=== PATIENT | male | born 1995 | race African-American/Black ===

== ENCOUNTER 2016-12-11 09:35 | Emergency (ER) | payer OTHER ==
[~2016-12-11 09:35] MED LIST: ACETAMINOPHEN PO; AMLODIPINE BESYL5 MG PO; CLINDAMYCIN HC300 MG PO; CYANOCOBALAM1000 MCG PO; FOLIC ACID1 MG PO; HYDREA500 MG; HYDREA500 MG PO; HYDROCODON-ACE1 EAC7 PO; HYDROXYUREA500 M1 PO; LEVOFLOXACIN250 MG PO; LISINOPRIL; LISINOPRIL10 MG PO; LISINOPRIL5 MG PO; LOPRESSOR PO; LORTAB 10/500 T1 TAB PO; LORTAB 5/500 TA1 TA2 PO; LORTAB 7.5-3251 EACH PO; MULTI VITAMIN1 EACH PO; NORCO 10/3251 TAB DOB; NORCO 5/325 TAB1 TAB PO; NORVASC PO; NORVASC10 MG PO; OXYCODONE HCL5 MG PO; OXYCODONE IR PO; PEN-VEE K; PERCOCET 10/31 UDTA1 PO; PERCOCET 10/3251 TAB PO; ULTRAM PO; VITAMIN B-121000 MC1 SUBQ; ZESTRIL10 M1 PO; ZESTRIL10 MG PO; ZESTRIL5 MG PO; [UNRECOGNIZED DRUG - OTHER]
[2016-12-11 10:09] LABS: BASOPHIL# 0.1 X10e3 (0-0.3); BASOPHIL% 0.7 % (0-2.5); EOSINOPHIL# 0.4 X10e3 (0-0.7); EOSINOPHIL% 4.3 % (0.0-7.0); HEMATOCRIT 30.6 % (38.0-50.0); LYMPHOCYTE# 1.4 X10e3 (1.0-3.5); LYMPHOCYTE% 15.1 % (17.0-45.0); MEAN CELL VOLUME 85.5 FL (83-96); MEAN CORPUSCULAR HEMOGLOBIN 27.9 PG (28-34); MEAN CORPUSCULAR HGB CONC 32.7 g/dL (30-36); MEAN PLATELET VOLUME 9.2 FL (6.5-11.5); MONOCYTE% 10.7 % (3.0-12.0); NEUTROPHIL# 6.2 X10e3 (1.5-7.1); NEUTROPHIL% 69.2 % (40-75); PLATELET COUNT 404 X10e3 (140-420); RED BLOOD COUNT 3.58 X10e (3.90-5.60); RED CELL DISTRIBUTION WIDTH 19.1 % (11.0-15.5); RETICULOCYTE 2.3 % (0.5-2.8)
[2016-12-11 10:14] LABS: DIFF IND NO
== END 2016-12-11 10:40 | disposition home or self-care (01) ==
LOC: CED 09:35
PROVIDERS: Emergency Medicine
DX: D57.00 Hb-SS disease with crisis, unspecified (principal); I10 Essential (primary) hypertension; Z90.49 Acquired absence of other specified parts of digestive tract; Z88.1 Allergy status to other antibiotic agents
CPT/HCPCS: 36415; 85025; 85044; 96361; 96374; 96375; 99284; J1885; J3010

== ENCOUNTER 2016-12-15 14:22 | Inpatient (IN) | payer OTHER ==
--- NOTE | ~2016-12-15 | CR63 ---
[facility] A Service of [facility] RADIOLOGY TEXT RESULTS PATIENT: MICHAELA FAGAN LOCATION: [facility] 570-01 : [birth year] UNIT #: [id number] AGE: [address]: Nancy Bolden MD SEX: M ORDER DR: [id number] [facility] [address] [place], [place] [address] [id number] I MR#: [id number] #: [id number] NAME: MICHAELA FAGAN : 1995 SEX: M STUDY DATE/TIME: 12/15/2016 19:47 UNIT: [facility] ROOM: [facility] STUDY DESCRIPTION: CR Chest 2 View Attending Physician: Nancy Bolden M.D. Ordering Physician: Ed Doctor [id number] [facility] Primary Care Physician: Arslan Buitrago M.D. MEDICAL IMAGING REPORT This report is preliminary unless electronic signature is present EXAM PA and lateral chest HISTORY Back pain for 4 days. FINDINGS Two views of the chest demonstrate the cardiac size and pulmonary vascularity are normal. Low lung volumes. No infiltrates or effusions. IMPRESSION Negative. Dictated by... Papo Baltazar M.D. THIS IS AN ELECTRONICALLY VERIFIED REPORT Papo Baltazar M.D. at 12/16/2016 9:04 PM ELAINE/eydta TD: 12/16/2016 11:26 JOB #: [id number] MEDICAL IMAGING REPORT Page 1 of 1 COPY
--- NOTE | ~2016-12-15 | DS ---
Unit #: [id number] #: [id number] Patient: MICHAELA FAGAN [id number] [address] [address] [id number] I MR#: [id number] NAME: MICHAELA FAGAN ROOM: 237 Age: 21 Sex: M Admission Date: 12/15/2016 : 1995 Discharge Date: Attending Physician: Nancy Bolden M.D. Primary Care Physician: Arslan Buitrago M.D. DISCHARGE SUMMARY DISCHARGE DIAGNOSES 1. Acute sickle cell crisis. 2. Anemia, acute on chronic secondary to sickle cell disease. 3. Leukocytosis. 4. Hypokalemia. 5. Vitamin B12 deficiency. 6. Generalized body pain secondary to sickle cell disease. CONSULTATION None. PROCEDURES None. LAB DATA Urine culture negative. WBC 15.7, hemoglobin 8.2, platelets 258, retic count 8.3. Vitamin B12 is 203. Chest x-ray is negative. ALLERGIES Erythromycin and vancomycin. DISCHARGE MEDICATIONS 1. Hydroxyurea 1500 mg p.o. daily. 2. Norvasc 5 mg daily. 3. Lisinopril 5 mg daily. 4. Percocet 10 mg q.4 p.r.n. pain. 5. Folic acid 1 mg p.o. daily. 6. Vitamin B12 1,000 mcg p.o. daily. HOSPITALIZATION COURSE This is a 21-year-old admitted because of generalized body pain secondary to acute sickle cell crisis. The patient received IV fluids and IV Dilaudid and Percocet. Chest x-ray, urinalysis negative. The patient received blood transfusion. Currently, hemoglobin is stable. His pain got better. He wants to go home. He has elevated retic count chronically. He needs to follow with [facility] with Dr. Buitrago as an outpatient for sickle cell. B12 deficiency: I am going to give him vitamin B12 pills. Acute on chronic anemia secondary to sickle cell: The patient received IV blood transfusion. Unit #: [id number] #: [id number] Patient: MICHAELA FAGAN Hypertension, well controlled. The patient will be discharged home, follow with family physician in one week's time, follow with Dr. Buitrago at [facility] in one to two weeks' time. Dictated by... Ana Resendiz TD: 12/18/2016 11:29 JOB #: [id number] DISCHARGE SUMMARY Page 1 of 1 X Nancy Bolden MD X DISCHARGE SUMMARY
--- NOTE | ~2016-12-15 | HP ---
Unit #: [id number] #: [id number] Patient: MICHAELA FAGAN [id number] [address] [address] [id number] I MR#: [id number] NAME: MICHAELA FAGAN ROOM: 69165 Age: 21 Sex: M Admission Date: 12/15/2016 : 1995 Attending Physician: Jairon Sutton M.D. Primary Care Physician: Arslan Buitrago M.D. HISTORY AND PHYSICAL CHIEF COMPLAINT Bilateral lower extremity pain. HISTORY OF PRESENT ILLNESS The patient is a 20-year-old male with a history of sickle cell disease who presented to the ER complaining of sickle cell pain crisis. The patient stated that patient was seen in the emergency room three days ago for the similar pain and was discharged home on oral painkillers. The patient stated the pain has been gradually worsening to the point that he cannot take it anymore. The patient has had multiple admissions in the past for similar reasons. He denies any nausea, vomiting, fever, chills, shortness of breath, or cough. The patient was found to have a potassium of 2.9 and has been replaced by the ER. The patient is receiving Dilaudid 2 mg every three hours for the pain. The patient is being admitted for the above reasons. PAST MEDICAL HISTORY 1. Sickle cell disease. 2. Hypertension. 3. B12 deficiency. PAST SURGICAL HISTORY 1. Cholecystectomy. 2. Mouth abscess I and D. HOME MEDICATIONS 1. Lisinopril. 2. Norvasc. 3. Hydroxyurea. 4. Percocet. ALLERGIES VANCOMYCIN AND INTOLERANT TO ERYTHROMYCIN. FAMILY HISTORY Positive for sickle cell trait. SOCIAL HISTORY The patient lives with his mother and siblings. He is a lifelong nonsmoker and does not drink alcohol. REVIEW OF SYSTEMS A 14-point review of systems was performed and only pertinent positive findings are described above. The remaining are negative. Unit #: [id number] #: [id number] Patient: MICHAELA FAGAN PHYSICAL EXAMINATION GENERAL: Patient is lying in bed not in acute distress. VITAL SIGNS: Temperature 98.4, pulse 101, respirations 16, blood pressure 126/78, and saturating 100% on room air. HEENT: Head atraumatic, normocephalic. Pupils equal, round, and reactive to light and accommodation. Extraocular movements are intact. Dry mucous membranes. NECK: Supple. No JVD. LUNGS: Clear to auscultation bilaterally. No rhonchi, no wheezing. HEART: Regular rate and rhythm. ABDOMEN: Soft. Positive bowel sounds. EXTREMITIES: No cyanosis, no clubbing. NEUROLOGIC: Alert, awake, and oriented. No gross focal motor deficit. DIAGNOSTIC STUDIES LABORATORY: Glucose of 63, BUN 10, creatinine 0.6, sodium 140, potassium 2.9, chloride 103, bicarb 28, calcium 9.2, total protein 7.9, albumin 4.5, total bilirubin 1.5, direct bilirubin 0.3, AST 25, ALT 14, and alkaline phosphatase 75. WBC 13.9, hemoglobin 10.2, hematocrit 30.2, platelets 209,000, and reticulocytes 4.6. ASSESSMENT 1. Sickle cell pain crisis. 2. Hypokalemia. 3. Leukocytosis. PLAN Admit the patient to inpatient with telemetry. Continue with IV fluids of normal saline at 125 mL/hour. Continue pain control with Dilaudid 2 mg q.3 hours. Rule out infection. Check a chest x-ray and urinalysis with cultures. Repeat the labs again in the morning. Further recommendations will follow as more lab results are available. Dictated by Ana Bernardo TD: 12/15/2016 20:11 JOB #: [id number] HISTORY AND PHYSICAL Page 1 of 1 X X HISTORY AND PHYSICAL
[2016-12-15 15:20] LABS: BASOPHIL# 0.1 X10e3 (0-0.3); BASOPHIL% 0.4 % (0-2.5); EOSINOPHIL# 0.2 X10e3 (0-0.7); EOSINOPHIL% 1.2 % (0.0-7.0); HEMATOCRIT 30.2 % (38.0-50.0); HEMOGLOBIN 10.2 gm/dL (13.0-16.0); LYMPHOCYTE# 4.7 X10e3 (1.0-3.5); LYMPHOCYTE% 33.5 % (17.0-45.0); MEAN CELL VOLUME 84.8 FL (83-96); MEAN CORPUSCULAR HEMOGLOBIN 28.7 PG (28-34); MEAN CORPUSCULAR HGB CONC 33.8 g/dL (30-36); MEAN PLATELET VOLUME 9.7 FL (6.5-11.5); MONOCYTE# 1.9 X10e3 (0-1.0); MONOCYTE% 13.3 % (3.0-12.0); NEUTROPHIL# 7.2 X10e3 (1.5-7.1); NEUTROPHIL% 51.6 % (40-75); PLATELET COUNT 209 X10e3 (140-420); RED BLOOD COUNT 3.56 X10e (3.90-5.60); RED CELL DISTRIBUTION WIDTH 16.6 % (11.0-15.5); RETICULOCYTE 4.6 % (0.5-2.8); WHITE BLOOD COUNT 13.9 X10e3 (4.0-10.5)
[2016-12-15 15:25] LABS: DIFF IND NO
[2016-12-15 15:39] LABS: ALBUMIN SERUM 4.5 g/dL (3.5-5.0); ALKALINE PHOSPHATASE 75 U/L (32-92); ALT (SGPT) 14 U/L (10-40); AST (SGOT) 25 U/L (10-42); BILIRUBIN, DIRECT 0.3 mg/dL (0.0-0.2); BILIRUBIN,INDIRECT 1.2 mg/dL (0.0-0.9); BILIRUBIN,TOTAL 1.5 mg/dL (0.2-2.0); BLOOD UREA NITROGEN 10 mg/dL (9-23); BUN/CREATININE RATIO 16.66; CALCIUM SERUM 9.2 mg/dL (8.4-10.2); CARBON DIOXIDE 28 mmol/L (22-31); CHLORIDE 103 mmol/L (100-111); CREATININE SERUM 0.6 mg/dL (0.6-1.4); GLOM FILT RATE Estimated ABOVE60 mL/min (>60); GLUCOSE FASTING 63 mg/dL (70-110); PROTEIN TOTAL SERUM 7.9 g/dL (6.0-8.3); SODIUM 140 mmol/L (135-145)
[2016-12-15 15:41] LABS: POTASSIUM 2.9 mmol/L (3.5-5.1)
[2016-12-15] MEDS ORDERED: PERCOCET 10/31 UDTA1 PO (16:32)
[2016-12-16 05:36] LABS: BASOPHIL# 0.1 X10e3 (0-0.3); BASOPHIL% 0.5 % (0-2.5); EOSINOPHIL# 0.8 X10e3 (0-0.7); HEMATOCRIT 24.2 % (38.0-50.0); LYMPHOCYTE# 6.9 X10e3 (1.0-3.5); LYMPHOCYTE% 41.8 % (17.0-45.0); MEAN CELL VOLUME 85.4 FL (83-96); MEAN CORPUSCULAR HEMOGLOBIN 28.7 PG (28-34); MEAN CORPUSCULAR HGB CONC 33.6 g/dL (30-36); MEAN PLATELET VOLUME 8.6 FL (6.5-11.5); MONOCYTE% 12.2 % (3.0-12.0); NEUTROPHIL# 6.7 X10e3 (1.5-7.1); NEUTROPHIL% 40.5 % (40-75); PLATELET COUNT 174 X10e3 (140-420); RED BLOOD COUNT 2.83 X10e (3.90-5.60); RED CELL DISTRIBUTION WIDTH 16.4 % (11.0-15.5); WHITE BLOOD COUNT 16.5 X10e3 (4.0-10.5)
[2016-12-16 05:38] LABS: DIFF IND YES; HEMOGLOBIN 8.1 gm/dL (13.0-16.0)
[2016-12-16 06:07] LABS: ANISOCYTOSIS SL; PLATELET ESTIMATE NORMAL (NORMAL)
[2016-12-16 06:11] LABS: BLOOD UREA NITROGEN 10 mg/dL (9-23); CALCIUM SERUM 8.5 mg/dL (8.4-10.2); CARBON DIOXIDE 26 mmol/L (22-31); CHLORIDE 110 mmol/L (100-111); CREATININE SERUM 0.5 mg/dL (0.6-1.4); GLOM FILT RATE Estimated ABOVE60 mL/min (>60); GLUCOSE FASTING 89 mg/dL (70-110); POTASSIUM 3.5 mmol/L (3.5-5.1); SODIUM 140 mmol/L (135-145)
[2016-12-16 08:49] LABS: URINE APPEARANCE CLEAR; URINE BILIRUBIN NEG (NEG); URINE BLOOD NEG (NEG); URINE COLOR YELLOW; URINE GLUCOSE NEG (NEG); URINE KETONE NEG (NEG); URINE LEUKOCYTE ESTERASE 2+ (NEG); URINE NITRATE NEG (NEG); URINE PROTEIN NEG (NEG); URINE SPECIFIC GRAVITY 1.014 (1.003-1.035); URINE UROBILINOGEN 0.2 MG/DL (NEG)
[2016-12-16 08:52] LABS: CULTURE INDICATED? YES; URBCS1 AUWI 0-2 /[HPF] (0-2); URINE BACTERIA AUWI NEG (NEGATIVE); URINE SQUAMOUS EPITHELIAL CELL FEW /[HPF]
[2016-12-17 07:04] LABS: ALBUMIN SERUM 3.4 g/dL (3.5-5.0); ALKALINE PHOSPHATASE 70 U/L (32-92); ALT (SGPT) 9 U/L (10-40); AST (SGOT) 14 U/L (10-42); BILIRUBIN,TOTAL 1.2 mg/dL (0.2-2.0); BLOOD UREA NITROGEN 8 mg/dL (9-23); CALCIUM SERUM 8.7 mg/dL (8.4-10.2); CARBON DIOXIDE 25 mmol/L (22-31); CHLORIDE 112 mmol/L (100-111); CREATININE SERUM 0.5 mg/dL (0.6-1.4); GLOM FILT RATE Estimated ABOVE60 mL/min (>60); GLUCOSE FASTING 92 mg/dL (70-110); POTASSIUM 3.8 mmol/L (3.5-5.1); PROTEIN TOTAL SERUM 5.8 g/dL (6.0-8.3); SODIUM 141 mmol/L (135-145)
[2016-12-17 07:09] LABS: HEMATOCRIT 22.8 % (38.0-50.0); HEMOGLOBIN 7.5 gm/dL (13.0-16.0); MEAN CELL VOLUME 87.6 FL (83-96); MEAN CORPUSCULAR HEMOGLOBIN 28.9 PG (28-34); MEAN PLATELET VOLUME 9.3 FL (6.5-11.5); RED BLOOD COUNT 2.6 X10e (3.90-5.60); RED CELL DISTRIBUTION WIDTH 16.4 % (11.0-15.5); RETICULOCYTE 6.4 % (0.5-2.8); WHITE BLOOD COUNT 15.2 X10e3 (4.0-10.5)
[2016-12-18 07:05] LABS: HEMATOCRIT 24.7 % (38.0-50.0); HEMOGLOBIN 8.2 gm/dL (13.0-16.0); MEAN CELL VOLUME 88.9 FL (83-96); MEAN CORPUSCULAR HEMOGLOBIN 29.3 PG (28-34); MEAN PLATELET VOLUME 9.3 FL (6.5-11.5); RED BLOOD COUNT 2.78 X10e (3.90-5.60); RETICULOCYTE 8.3 % (0.5-2.8); WHITE BLOOD COUNT 15.7 X10e3 (4.0-10.5)
[2016-12-18] MEDS ORDERED: FOLIC ACID PO (11:01)
[2016-12-18] MEDS ORDERED: B-121000 MC1 PO (11:02)
== END 2016-12-18 12:18 | disposition home or self-care (01) | DRG 812 ==
LOC: CED 14:22 → CEDOF 18:41 → C5C 20:46 → C2A 12-17 00:10
PROVIDERS: Emergency Medicine; Internal Medicine
DX: D57.00 Hb-SS disease with crisis, unspecified (principal); I10 Essential (primary) hypertension; E87.6 Hypokalemia; E53.8 Deficiency of other specified B group vitamins; Z90.49 Acquired absence of other specified parts of digestive tract; I25.10 Atherosclerotic heart disease of native coronary artery without angina pectoris; I25.2 Old myocardial infarction; Z83.2 Family history of diseases of the blood and blood-forming organs and certain disorders involving the immune mechanism
CPT/HCPCS: 36415; 71020; 80048; 80053; 80076; 81003; 82607; 82947; 85025; 85027; 85044; 87086; 96361; 96374; 96375; 96376; 99285; J1170; J1650; J2060; J2405

== ENCOUNTER 2017-04-11 19:30 | Inpatient (IN) | payer OTHER ==
[~2017-04-11] VITALS: Ht 162.6 cm; Wt 66.4 kg
--- NOTE | ~2017-04-11 | HM ---
Unit #: [id number] #: [id number] Patient: MICHAELA FAGAN [id number] [place], [place] [address] [id number] I MR#: [id number] NAME: MICHAELA FAGAN : 1995 SEX: M STUDY DATE/TIME: 04/12/2017 UNIT: [facility] ROOM: 563 STUDY DESCRIPTION: Attending Physician: Shar Stout M.D. Primary Care Physician: Arslan Buitrago M.D. CARDIOLOGY REPORT EXAM 24-hour Holter monitor. DATE APPLIED 04/12/2017 DATE SCANNED 04/14/2017 READ BY [facility]. ORDERED BY Leslie Lu M.D. REASON FOR STUDY Bradycardia. FINDINGS Underlying rhythm is normal sinus rhythm with an average heart rate of 65 beats per minute, minimum heart rate of 41 beats per minute, and a maximum heart rate of 113 beats per minute. The minimum heart rate of 41 beats per minute is noted at 3:19 p.m. The maximum heart rate of 113 beats per minute is noted at 3:40 a.m. The patient had a 0.7 second pause noted at 1:54 p.m. Patient had 181 single multifocal premature ventricular complex and 17 ventricular couplets noted. The patient had 121 single premature atrial complex and 31 atrial couplets noted. Patient did not record any symptoms. CONCLUSION 1. Underlying rhythm is normal sinus rhythm with an average heart rate of 65 beats per minute, minimum heart rate of 41 beats per minute and a maximum heart rate of 113 beats per minute. 2. No sustained atrial or ventricular arrhythmias noted. 3. No significant pauses noted. 4. Occasional single multifocal premature ventricular complex, ventricular couplet, premature atrial complex and atrial couplet noted. 5. The patient did not record any symptoms. Unit #: [id number] #: [id number] Patient: MICHAELA FAGAN Dictated by... Ana Mckoy TD: 04/15/2017 11:22 JOB #: [id number] CARDIOLOGY REPORT Page 1 of 1 X Leslie Lu MD <ELECTRONICALLY SIGNED> 04/17/17 1429 HOLTER MONITOR REPORT
--- NOTE | ~2017-04-11 | EKG ---
PATIENT: MICHAELA FAGAN UNIT #: [id number] Ventricular Rate: 51 BPM Atrial Rate: 51 BPM P-R Interval: 134 ms QRS Duration: 96 ms Q-T Interval: 430 ms QTC Calculation(Bezet): 396 ms P Spicer: -5 degrees Calculated R Spicer: 57 degrees Calculated T Spicer: 41 degrees Diagnosis Line: Sinus bradycardia Diagnosis Line: Otherwise normal ECG Diagnosis Line: No previous ECGs available Diagnosis Line: Confirmed by SOFIYA PACK MD ([id number]) on Diagnosis Line: 04/13/2017 3:45:17 PM INTERPRETING MD: MIAH
--- NOTE | ~2017-04-11 | CO ---
Unit #: [id number] #: [id number] Patient: MICHAELA FAGAN [id number] [address] [address] [id number] I MR#: [id number] NAME: MICHAELA FAGAN ROOM: 563 Age: 22 Sex: M Admission Date: 04/12/2017 : 1995 Attending Physician: Shar Stout M.D. Primary Care Physician: Arslan Buitrago M.D. CONSULTATION REPORT CHIEF COMPLAINT Sickle cell disease, in crisis; bilateral knee pain, on hydroxyurea; patient at [facility]. HISTORY OF PRESENT ILLNESS This is a 22-year-old male who has sickle cell disease. He is taking hydroxyurea 1,500 mg daily. He has been followed at [facility]. Patient came to the hospital with severe bilateral knee pain. He is receiving IV fluids and pain medication. Today's CBC showed WBC of 20.3, hemoglobin 7.1, MCV 86 and platelets 338. His creatinine is 0.6, total bili 2.3, alkaline phosphatase 97. He does not have any chest x-ray. REVIEW OF SYSTEMS CONSTITUTIONAL: No fever, no chills, no sweats, no weight loss. EYES: No visual symptoms. EARS, NOSE AND THROAT: There is no runny nose or sore throat or difficulty hearing. CARDIOVASCULAR: No chest pain. No shortness of breath. No palpitations. No orthopnea. No PND. RESPIRATORY: No cough. No wheezing. No hemoptysis. GASTROINTESTINAL: No nausea, vomiting, diarrhea, constipation, hematochezia or melena. GENITOURINARY: No urinary frequency, hesitancy or urgency. No blood in the urine. MUSCULOSKELETAL: As mentioned above. NEUROLOGIC: No headache. No numbness or tingling. No weakness. No seizure. PSYCHIATRIC: No anxiety, depression or mood disturbance. ENDOCRINE: No excessive urination or thirst. DERMATOLOGIC: No rash or change in the skin. ALLERGIC/IMMUNOLOGIC: No symptoms. HEMATOLOGIC/LYMPHATIC: Denies any symptoms. PAST MEDICAL HISTORY 1. Sickle cell disease, multiple crises. 2. Hypertension. ALLERGIES None. SOCIAL HISTORY Unit #: [id number] #: [id number] Patient: MICHAELA FAGAN No smoking. No alcohol. No drugs. FAMILY HISTORY No one in the family has sickle cell disease. (1) trait. CURRENT MEDICATIONS Include vitamin B12, folic acid, hydroxyurea, Norvasc, Zestril, Percocet, morphine, ibuprofen. PHYSICAL EXAMINATION VITALS: Afebrile. Pulse 59, respirations 18, O2 sats on 2 liters 100%, blood pressure 129/68. HEENT: Moist mucosa. Pupils equally reactive to light. Extraocular muscles intact. Sclerae anicteric. No obvious bleeding from nasal mucosa or oral mucosa. Scalp normal. Hearing normal. NECK: No JVD. No lymphadenopathy. LYMPHATIC/HEMATOLOGIC: There is no palpable adenopathy in the neck, axilla or inguinal area. CARDIOVASCULAR: S1, S2. Regular rate and rhythm. No S3 or S4. RESPIRATORY: Chest symmetrical, normal. Clear to auscultation bilaterally. No wheezes, no rales, no rhonchi. No dullness to percussion. ABDOMEN/GASTROINTESTINAL: Abdomen is soft, nontender, nondistended. No hepatosplenomegaly. EXTREMITIES: There is no clubbing, no cyanosis, no edema. No varicose veins. NEUROLOGICAL: Patient is alert, awake and oriented x3. Cranial nerves II-XII are intact. Sensory grossly intact. Motor is 4/5 in all four extremities. Gait is normal. Station is normal. Language is normal. Memory is normal. DTRs +2 in all four extremities. MUSCULOSKELETAL: No joint swelling. No bony tenderness. No muscle tenderness. SKIN: No petechiae, no rash, no ecchymosis. PSYCHIATRIC: No anxiety. No delusions or hallucinations. There is no agitation. Eye contact is normal. Affect is appropriate. There is no flight of ideas. DIAGNOSTIC STUDIES LAB: As mentioned above. ASSESSMENT AND PLAN This is a 22-year-old male who has the following active issues: 1. Sickle cell. He is in crisis. He has bilateral knee pain. His hemoglobin is 7. Will transfuse him 1 unit of PRBCs. Will continue folic acid, B12 and hydroxyurea. Please note that he is taking hydroxyurea 1,500 mg daily. He will follow at [facility]. 2. Pain. Will continue current pain medication. 3. Dehydration. Will continue IV fluids. Dictated by... Ana Downey TD: 04/12/2017 10:12 JOB #: [id number] Unit #: [id number] #: [id number] Patient: RYLAN,MICHAELAMark Adame CONSULTATION REPORT Page 1 of 1 X Bhavin Pereyra MD CONSULTATION REPORT
--- NOTE | ~2017-04-11 | CR72 ---
[facility] A Service of [facility] RADIOLOGY TEXT RESULTS PATIENT: MICHAELA FAGAN LOCATION: [facility] 563-01 : [birth year] UNIT #: [id number] AGE: [address]: Shar Stout MD SEX: M ORDER DR: [id number] [facility] [address] [facility]. [place], [place] [address] [id number] I MR#: [id number] #: [id number] NAME: MICHAELA FAGAN : 1995 SEX: M STUDY DATE/TIME: 04/12/2017 11:15 UNIT: [facility] ROOM: [facility] STUDY DESCRIPTION: CR Chest Single View Portable Attending Physician: Shar Stout M.D. Ordering Physician: Shar Stout M.D. Primary Care Physician: Arslan Buitrago M.D. MEDICAL IMAGING REPORT This report is preliminary unless electronic signature is present EXAM Portable chest 04/12/2017 HISTORY 22-year-old male with sickle cell crisis, total body pain past 2 days. COMPARISON Chest 12/15/2016. FINDINGS AP portable chest demonstrates very low inspiration. Cardiac enlargement is again noted. Lungs are clear. Some vascular prominence appears to reflect the low inspiratory effort. I see no infiltrates and no effusions. Biconcave wedging and loss of vertebral heights scattered throughout thoracic and visualized lumbar vertebrae. Overall increase in bone mineral density noted. IMPRESSION Cardiac enlargement and generalized increase in bone mineral density with multiple biconcave vertebral fractures. No acute lung finding at this time. Low lung volumes. Dictated by... Ramez Bob M.D. THIS IS AN ELECTRONICALLY VERIFIED REPORT Ramez Bob M.D. at 04/13/2017 8:58 AM MATT/gabriel TD: 04/13/2017 08:31 [facility] A Service of [facility] RADIOLOGY TEXT RESULTS PATIENT: MICHAELA FAGAN LOCATION: [facility]3-01 : [birth year] UNIT #: [id number] AGE: [address]: Shar Stout MD SEX: M ORDER DR: JOB #: [id number] MEDICAL IMAGING REPORT Page 1 of 1 COPY
--- NOTE | ~2017-04-11 | HP ---
Unit #: [id number] #: [id number] Patient: MICHAELA PEMBERTON [id number] [address] [address] [id number] I MR#: [id number] NAME: MICHAELA PEMBERTON ROOM: 563 Age: 22 Sex: M Admission Date: 04/12/2017 : 1995 Attending Physician: Shar Stout M.D. Primary Care Physician: Arslan Buitrago M.D. HISTORY AND PHYSICAL CHIEF COMPLAINT Sickle cell pain. HISTORY OF PRESENT ILLNESS Mr. Michaela Pemberton is a 22-year-old black male with a history of sickle cell and recurrent admissions for sickle cell crisis to this hospital over the last several years. He presented with bilateral leg pain which is worse at the knees, which he describes as somewhat typical for his previous sickle cell episodes. He describes the pain as stabbing and constant, equal bilaterally. He follows chronically with [facility] regarding his sickle cell. He has been compliant with his hydroxyurea. He denies any shortness of breath or chest pain. He was admitted to the telemetry floor and started on IV fluids, IV opiates, and consultation was obtained with hematology. PAST MEDICAL HISTORY 1. Sickle cell disease with recurrent admissions for sickle cell crisis. 2. Chronic anemia. 3. Hypertension. 4. History of a submandibular infection. PAST SURGICAL HISTORY 1. Cholecystectomy. 2. Multiple teeth extraction with drainage of submandibular and submental abscesses. SOCIAL HISTORY No tobacco or alcohol. No illicit drug use. FAMILY HISTORY Parents have sickle cell trait. ALLERGIES Erythromycin and vancomycin. HOME MEDICATIONS 1. Percocet 10/325 one tablet p.o. q.4 hours p.r.n. for severe pain. 2. Hydroxyurea 1500 mg p.o. daily. 3. Folic acid 1 mg p.o. daily. 4. Norvasc 5 mg p.o. daily. 5. Lisinopril 5 mg p.o. daily. 6. Vitamin B12 at 1000 mcg p.o. daily. REVIEW OF SYSTEMS Unit #: [id number] #: [id number] Patient: MICHAELA PEMBERTON A full 10-point review of systems was done and is negative except for the bilateral leg pains. PHYSICAL EXAMINATION VITAL SIGNS: Temperature is 97.8, pulse 59, respiratory rate 18, blood pressure 129/68. GENERAL: The patient is alert and oriented. Appears uncomfortable but no acute respiratory or other distress. CARDIOVASCULAR: Bradycardiac. Regular rhythm. No murmurs. LUNGS: Clear to auscultation bilaterally. No rales, rhonchi, or wheezes. ABDOMEN: Soft, nontender, nondistended. No mass or hepatosplenomegaly. EXTREMITIES: No edema. SKIN: Warm, dry, and intact. There are no rashes. MUSCULOSKELETAL: No joint effusions. His knee pain is not worsened by palpation of either knee. He has no joint or muscle tenderness. He has no psoas tenderness in examination for DVT. Overall, he has no clinical signs of DVT. HEAD: Normocephalic and atraumatic. EYES: Sclerae are white. Conjunctivae are pale. NOSE: External nares are normal. There is no bleeding or drainage. MOUTH: Mucous membranes are moist. There are no oropharyngeal lesions. NECK: Supple. No cervical lymphadenopathy. Trachea is midline. NEUROLOGIC: Patient has 5/5 strength in all four extremities. No focal neurologic deficits. DIAGNOSTIC STUDIES LABORATORY: His most recent CBC shows a white blood cell count of 20.3, hemoglobin 7.1, platelets 338,000. Basic metabolic profile is normal. Bilirubin was elevated at 2.3. Alkaline phosphatase was elevated at 97. AST and ALT were normal. Albumin was normal. CARDIOVASCULAR: Telemetry monitoring showed a sinus rhythm with a 3-second pause earlier today. The exact time is not legible on the strip. ASSESSMENT AND PLAN 1. 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 Have turned up his oxygen to 4 L and advised him to leave his oxygen in his nose as it appears that he had his oxygen out when he had the 3-second pause. Will transfuse p.r.n. Appreciate hematology's help who has already seen the patient earlier this morning in evaluation. Will monitor with daily exam and daily lab. 2. A 3-second pause: Will stop Norvasc. Continue the patient on 4 L of oxygen and monitor on telemetry. 3. History of hypertension: Will continue the patient on his home lisinopril. 4. Leukocytosis: Will monitor with daily lab. Will monitor vitals q.4 hours and will initiate an infectious workup if any fevers. Will check a urinalysis and a chest x-ray. Dictated by Ana Su/tatum Unit #: [id number] #: [id number] Patient: MICHAELA PEMBERTON TD: 04/12/2017 10:19 JOB #: [id number] HISTORY AND PHYSICAL Page 1 of 1 X Shar Stout MD X HISTORY AND PHYSICAL
--- NOTE | ~2017-04-11 | CO ---
Unit #: [id number] #: [id number] Patient: MICHAELA FAGAN [id number] [address] [place], [place] [address] [id number] I MR#: [id number] NAME: MICHAELA FAGAN ROOM: 56 Age: 22 Sex: M Admission Date: 04/12/2017 : 1995 Attending Physician: Shar Stout M.D. Primary Care Physician: Arslan Buitrago M.D. CONSULTATION REPORT REASON FOR CONSULTATION Bradycardia. HISTORY OF PRESENT ILLNESS This is a 22-year-old male, who is followed by Dr. Buitrago at [facility] for a sickle cell anemia. The patient was admitted with a sickle cell crisis. He had leg pain for the past 2 days. He has been treated in the emergency room with intravenous Dilaudid, his last dose at 2345 hours. During the course of his stay, the patient has noted to have episodes of bradycardia with heart rate was in the 40s with periods of significant pauses greater than 3 seconds. The patient was asymptomatic. Denying any dizziness, dyspnea, or nausea. No diaphoresis or chest pain. He is normotensive with blood pressure of 110/61 mmHg. From a cardiac standpoint, the patient gives history of a heart attack at age 13, but was unsure of any procedures. He has been told to have hypertension and a "heart murmur." He has received many blood transfusions in the past at least every 2 to 3 months. His electrolytes are within normal limits. Hemoglobin low at 7.1. Also noted for leukocytosis with white count of 20.3. PAST MEDICAL HISTORY 1. Hypertension. 2. The patient reported [place] at age 13, no details available. 3. Heart murmur. 4. Sickle cell anemia. 5. Chronic pain syndrome. 6. Vitamin B12 deficiency. 7. Lifelong nonsmoker. PAST SURGICAL HISTORY 1. Cholecystectomy. 2. Oral surgery. SOCIAL HISTORY The patient is disabled and lives with his mother. He has never smoked. He denies a history of illicit drug or alcohol use. FAMILY HISTORY Negative for coronary artery disease. Both parents have sickle cell trait as well as his sisters and brothers. ALLERGIES Erythromycin and vancomycin. Unit #: [id number] #: [id number] Patient: MICHAELA FAGAN HOME MEDICATIONS Lisinopril 5 mg daily, Norvasc 5 mg daily, hydroxyurea 1500 mg daily, Percocet 10/325 q.4 hours p.r.n., folic acid 1 mg daily, vitamin B12 of 1000 mcg daily. REVIEW OF SYSTEMS CONSTITUTIONAL: Negative for fever or chills. Has no weight gain or weight loss. HEENT: No headache, hearing or vision change, difficulty with swallowing. No dizziness. CARDIOVASCULAR: Has no symptoms of angina. Denies palpitations. Denies syncope or near syncope. RESPIRATORY: Negative for dyspnea, cough, or hemoptysis. GASTROINTESTINAL: No abdominal pain, nausea, or vomiting. No constipation or melena. EXTREMITIES: Positive for bilateral lower extremity knee pain. Denies leg edema. PHYSICAL EXAMINATION VITAL SIGNS: Blood pressure 110/61, heart rate 73, temperature 97.9. BMI of 25. GENERAL: This is a very pleasant 22-year-old male, who is in obvious discomfort to his lower extremities. He is in no acute respiratory distress. NEUROLOGIC: He is awake, alert, oriented. There are no focal weaknesses. NECK: Trachea is midline. No thyromegaly or lymphadenopathy. No jugular venous distention. HEART: S1 and S2. Heart sounds are normal. No murmurs. No rubs. No clicks. Regular rate and rhythm. LUNGS: Clear without rales, rhonchi, or wheezing. ABDOMEN: Soft and nontender with bowel sounds are present. EXTREMITIES: Without leg edema. SKIN: Warm and dry. DIAGNOSTIC STUDIES LABORATORY RESULTS: Glucose 87, BUN 12, creatinine 0.6, sodium 138, potassium 4.1. White count 20.3, hemoglobin 7.1, hematocrit of 21.4, and platelet count is 338. CARDIOVASCULAR STUDIES: EKG shows sinus bradycardia, rate of 51 beats per minute. Rhythm strip shows periods of sinus bradycardia at 40 beats per minute with longest pause at 3.2 seconds. IMPRESSION 1. Sickle cell crisis. 2. Sinus arrest with pauses up to 3.2 seconds. 3. Chronic pain syndrome. PLAN 1. Cardiology was consulted for Jose arrhythmias and pauses. His longest pause was 3.2 seconds, but had other pauses at 2.[address] 24-hour Holter monitor and evaluate. 2. Obtain 2D echocardiogram to evaluate for structural heart disease and left ventricular systolic function. 3. TSH will be done. Unit #: [id number] #: [id number] Patient: MICHAELA FAGAN 4. The patient had a last dose of IV Dilaudid at 11:23 p.m. Pauses may be secondary to pain medications. 5. We will need event monitor at discharge. 6. We will follow the patient with you. Thank you for allowing us to assist with this patient's care. Dictated by... Brittani Muñoz/paul TD: 04/13/2017 08:24 JOB #: [id number] CONSULTATION REPORT Page 1 of 1 X Brian Cortez APRN X CONSULTATION REPORT
--- NOTE | ~2017-04-11 | DS ---
Unit #: [id number] #: [id number] Patient: MICHAELA FAGAN [id number] [address] [address] [id number] I MR#: [id number] NAME: MICHAELA FAGAN ROOM: [facility] Age: 22 Sex: M Admission Date: 04/12/2017 : 1995 Discharge Date: 04/13/2017 Attending Physician: Shar Stout M.D. Primary Care Physician: Arslan Buitrago M.D. DISCHARGE SUMMARY PRIMARY DIAGNOSIS Sickle cell crisis. SECONDARY DIAGNOSES Sinus bradycardia with sinus pauses likely secondary to vagal effects of pain, dehydration, leukocytosis, anemia, hypertension, and urinary tract infection. HOSPITAL COURSE The patient was admitted to the hospital for sickle cell crisis. He presented to the emergency room on the evening of the and was given IV Dilaudid and IV Zofran and IV fluids. Hematology was consulted. The patient continued on oxygen and IV pain control until the afternoon of the when the patient was markedly improved. The patient still had low hemoglobin at a level of 7.4, and an elevated white count of 17,000. These results were discussed with Dr. Pereyra, who felt the patient could clinically go home. The patient did have findings on urinalysis suggestive of UTI and he will go home on 7 days of antibiotics. Cultures are pending. The patient did have a couple of sinus pauses of approximately 3 to 4 seconds each. Cardiology was consulted with Dr. Lu and Dr. Sifuentes. The patient had a TSH checked, which was normal and the patient was felt stable to be discharged at any time from a cardiac standpoint as of the morning of the . The patient was requesting to go home as he felt much better and was not requiring any p.r.n. pain medications over the last 12 hours of hospitalization. DISCHARGE DISPOSITION To home. DISCHARGE STATUS Stable. FOLLOWUP Followup is with the [facility] in 1 to 2 weeks, which is regular sickle cell doctor for followup blood counts and follow up on the urine culture results and repeat urinalysis if needed. DISCHARGE DIET Unrestricted. Unit #: [id number] #: [id number] Patient: MICHAELA FAGAN DISCHARGE ACTIVITY Unrestricted. DISCHARGE MEDICATIONS Hydroxyurea 1500 mg p.o. once daily, Norvasc 5 mg p.o. daily, lisinopril 5 mg p.o. daily, Percocet 10 mg one tablet q.4 hours p.r.n. severe pain, folic acid 1 mg p.o. daily, vitamin B12 of 1000 mcg p.o. daily, and Omnicef 300 mg p.o. b.i.d. x7 days. Dictated by... Shar Stout M.D. DEBBIE/paul TD: 04/17/2017 01:56 JOB #: [id number] DISCHARGE SUMMARY Page 1 of 1 X Shar Stout MD X DISCHARGE SUMMARY
[~2017-04-11 19:30] MED LIST changes: +B-121000 MC1 PO; +FOLIC ACID PO
[2017-04-11 21:25] LABS: BASOPHIL# 0.1 X10e3 (0-0.3); BASOPHIL% 0.5 % (0-2.5); EOSINOPHIL# 0.6 X10e3 (0-0.7); EOSINOPHIL% 3.2 % (0.0-7.0); HEMATOCRIT 23.2 % (38.0-50.0); HEMOGLOBIN 7.9 gm/dL (13.0-16.0); LYMPHOCYTE# 4.6 X10e3 (1.0-3.5); LYMPHOCYTE% 23.6 % (17.0-45.0); MEAN CELL VOLUME 87.4 FL (83-96); MEAN CORPUSCULAR HEMOGLOBIN 29.5 PG (28-34); MEAN CORPUSCULAR HGB CONC 33.8 g/dL (30-36); MEAN PLATELET VOLUME 8.9 FL (6.5-11.5); MONOCYTE# 1.3 X10e3 (0-1.0); MONOCYTE% 6.4 % (3.0-12.0); NEUTROPHIL% 66.3 % (40-75); PLATELET COUNT 391 X10e3 (140-420); RED BLOOD COUNT 2.66 X10e (3.90-5.60); RED CELL DISTRIBUTION WIDTH 21.2 % (11.0-15.5); RETICULOCYTE 14.8 % (0.5-2.8); WHITE BLOOD COUNT 19.6 X10e3 (4.0-10.5)
[2017-04-11 21:26] LABS: DIFF IND YES
[2017-04-11 21:34] LABS: ALBUMIN SERUM 4.3 g/dL (3.5-5.0); BILIRUBIN, DIRECT 0.3 mg/dL (0.0-0.2); BILIRUBIN,TOTAL 2.3 mg/dL (0.2-2.0); BUN/CREATININE RATIO 26.66; CREATININE SERUM 0.6 mg/dL (0.6-1.4); GLOM FILT RATE Estimated 164.3 mL/min (>60); POTASSIUM 3.9 mmol/L (3.5-5.1); PROTEIN TOTAL SERUM 7.5 g/dL (6.0-8.3)
[2017-04-11 21:48] LABS: PLATELET ESTIMATE NORMAL (NORMAL); SICKLE CELLS PRESENT
[2017-04-11 21:49] LABS: ANISOCYTOSIS MOD
[2017-04-12 02:26] LABS: BASOPHIL# 0.2 X10e3 (0-0.3); BASOPHIL% 1.1 % (0-2.5); DIFF IND NO; EOSINOPHIL# 2.1 X10e3 (0-0.7); EOSINOPHIL% 10.5 % (0.0-7.0); HEMATOCRIT 21.4 % (38.0-50.0); HEMOGLOBIN 7.1 gm/dL (13.0-16.0); LYMPHOCYTE# 7.1 X10e3 (1.0-3.5); LYMPHOCYTE% 34.9 % (17.0-45.0); MEAN CELL VOLUME 86.2 FL (83-96); MEAN CORPUSCULAR HEMOGLOBIN 28.7 PG (28-34); MEAN CORPUSCULAR HGB CONC 33.4 g/dL (30-36); MEAN PLATELET VOLUME 8.7 FL (6.5-11.5); MONOCYTE# 1.4 X10e3 (0-1.0); MONOCYTE% 6.9 % (3.0-12.0); NEUTROPHIL# 9.4 X10e3 (1.5-7.1); NEUTROPHIL% 46.6 % (40-75); PLATELET COUNT 338 X10e3 (140-420); RED BLOOD COUNT 2.49 X10e (3.90-5.60); RED CELL DISTRIBUTION WIDTH 22.5 % (11.0-15.5); WHITE BLOOD COUNT 20.3 X10e3 (4.0-10.5)
[2017-04-12 02:51] LABS: CALCIUM SERUM 9.1 mg/dL (8.4-10.2); CREATININE SERUM 0.6 mg/dL (0.6-1.4); GLOM FILT RATE Estimated 164.3 mL/min (>60); POTASSIUM 4.1 mmol/L (3.5-5.1)
[2017-04-12 23:15] LABS: URINE APPEARANCE CLEAR; URINE BILIRUBIN NEG (NEG); URINE BLOOD NEG (NEG); URINE COLOR YELLOW; URINE GLUCOSE NEG (NEG); URINE KETONE NEG (NEG); URINE LEUKOCYTE ESTERASE 3+ (NEG); URINE NITRATE NEG (NEG); URINE PH 6.5 (5-8); URINE PROTEIN NEG (NEG); URINE SPECIFIC GRAVITY 1.006 (1.003-1.035); URINE UROBILINOGEN 0.2 MG/DL (NEG)
[2017-04-12 23:19] LABS: CULTURE INDICATED? YES; URBCS1 AUWI 0-2 /[HPF] (0-2); URINE BACTERIA AUWI NEG (NEGATIVE); URINE SQUAMOUS EPITHELIAL CELL NONE SEEN /[HPF]; UWBCS1 AUWI 50-100 (0-5)
[2017-04-13 04:38] LABS: HEMATOCRIT 21.9 % (38.0-50.0); HEMOGLOBIN 7.4 gm/dL (13.0-16.0); MEAN CELL VOLUME 87.7 FL (83-96); MEAN CORPUSCULAR HEMOGLOBIN 29.6 PG (28-34); MEAN CORPUSCULAR HGB CONC 33.8 g/dL (30-36); MEAN PLATELET VOLUME 8.8 FL (6.5-11.5); RED BLOOD COUNT 2.5 X10e (3.90-5.60); RED CELL DISTRIBUTION WIDTH 21.6 % (11.0-15.5); WHITE BLOOD COUNT 17.7 X10e3 (4.0-10.5)
[2017-04-13 05:10] LABS: FERRITIN 1022 ng/mL (24-336)
[2017-04-13 05:28] LABS: ALBUMIN SERUM 3.8 g/dL (3.5-5.0); BILIRUBIN,TOTAL 1.2 mg/dL (0.2-2.0); BUN/CREATININE RATIO 11.66; CALCIUM SERUM 9.2 mg/dL (8.4-10.2); CREATININE SERUM 0.6 mg/dL (0.6-1.4); GLOM FILT RATE Estimated 164.3 mL/min (>60); POTASSIUM 4.6 mmol/L (3.5-5.1); PROTEIN TOTAL SERUM 6.7 g/dL (6.0-8.3)
[2017-04-13] MEDS ORDERED: OMNICEF300 MG PO (14:38)
== END 2017-04-13 18:00 | disposition home or self-care (01) | DRG 812 ==
LOC: CED 19:30 → CEDOF 04-12 00:45 → C5C 04-12 00:45 → CED 04-12 01:05 → CEDOF 04-12 01:05 → C5C 04-12 02:50 → CEDOF 04-12 02:50 → C5C 04-12 09:37
PROVIDERS: Emergency Medicine; Internal Medicine; Internal Medicine Hematology
DX: D57.00 Hb-SS disease with crisis, unspecified (principal); I10 Essential (primary) hypertension; N39.0 Urinary tract infection, site not specified; I45.5 Other specified heart block; I25.2 Old myocardial infarction; E53.8 Deficiency of other specified B group vitamins; Z90.49 Acquired absence of other specified parts of digestive tract; Z88.1 Allergy status to other antibiotic agents; R00.1 Bradycardia, unspecified; E86.0 Dehydration; D64.9 Anemia, unspecified; D72.829 Elevated white blood cell count, unspecified
CPT/HCPCS: 36415; 71010; 80048; 80053; 80076; 81003; 82607; 82728; 83540; 83550; 84443; 85025; 85027; 85044; 86850; 86900; 86901; 87086; 93005; 93225; 93226; 94760; 96361; 96374; 96375; 96376; 99285; J1170; J2270; J2405